=== PATIENT | female | born 1980 | race Caucasian/White ===

== ENCOUNTER 2017-01-08 07:57 | Emergency (ER) | payer MEDICAID ==
[2017-01-08 08:08] VITALS: TEMP 97.3; O2SAT 95
--- NOTE | 2017-01-08 09:02 | EDPHY ---
H & P Time Seen by Provider: 01/08/17 08:55 HPI/ROS: CHIEF COMPLAINT: Right ankle pain HISTORY OF PRESENT ILLNESS: This 36-year-old female, presents to the emergency department after an inversion ankle injury. The patient complains of pain to the lateral ankle and swelling. The patient has no other complaints, denies numbness or tingling to affected limb. Smoking Status: Current every day smoker Physical Exam: General appearance: alert no distress Right ankle: There is swelling and tenderness over the lateral ankle. TTP to ATFL and CFL Ankle joint is stable and there is no tenderness over the achilles tendon. The foot is non-tender without swelling. No TTP over 5th metatarsal. Neurologic exam: The patient has normal sensation and motor function distal to the injury. Vascular exam: Normal pulses and capillary refill in the foot Constitutional: Initial Vital Signs Temperature (C) 36.3 C 01/08/17 08:05 Heart Rate 84 01/08/17 08:05 Respiratory Rate 18 01/08/17 08:05 Blood Pressure 158/118 H 01/08/17 08:05 O2 Sat (%) 95 01/08/17 08:05 O2 Delivery Mode Room Air Allergies/Adverse Reactions: oxycodone HCl [From Percocet] Allergy (Unknown, Verified 01/08/17 08:03) Home Medications: Medication Instructions Recorded Ambien 01/08/17 DIAZEPAM 01/08/17 Diclofenac Sodium 01/08/17 LaMICtal 01/08/17 Sertraline HCl 01/08/17 Wellbutrin 100mg (*) 01/08/17 MDM/Departure - MDM Imaging Results: Imaging Impressions Ankle X-Ray 01/08/17 08:27 Impression: Fibular talar ligament avulsion.. Imaging: I viewed and interpreted images myself - Depart Disposition: Home, Routine, Self-Care Clinical Impression: Moderate right ankle sprain Qualifiers: Encounter type: initial encounter Qualified Code(s): S93.401A - Sprain of unspecified ligament of right ankle, initial encounter Condition: Good Instructions: Ankle Sprain (ED) Additional Instructions: Rest, ice, elevate, take your diclofenac as prescribed for pain and swelling. You can also add Tylenol to this. Return to the emergency department for any numbness, tingling, discoloration of you limb or other concerns. Use crutches, do not put weight on your right foot until you follow up with your orthopedist. Call today to schedule an appointment with your orthopedist at first available. Referrals: Flaquita Rodriguez, KARINE [Primary Care Provider] - As per Instructions
[2017-01-08 10:30] VITALS: BP 135/96; PULSE 85; RESP 16
== END 2017-01-08 10:30 | disposition home or self-care (01) ==
DX: S93.401A Sprain of unspecified ligament of right ankle, initial encounter (principal); F17.200 Nicotine dependence, unspecified, uncomplicated; X50.9XXA Other and unspecified overexertion or strenuous movements or postures, initial encounter
CPT/HCPCS: L4386

== ENCOUNTER 2017-02-06 19:27 | Emergency (ER) | payer MEDICAID ==
[2017-02-06 19:33] VITALS: PULSE 88; RESP 18; TEMP 98.2
--- NOTE | 2017-02-06 22:04 | EDPHY ---
H & P Smoking Status: Light smoker Time Seen by Provider: 02/06/17 21:06 HPI/ROS: CHIEF COMPLAINT: Right foot pain HISTORY OF PRESENT ILLNESS: 36-year-old female presents to the emergency department with right foot pain. The patient states that she rolled her right ankle few weeks ago and is now having more pain in her right foot. She has seen a furniture detailer. She had negative x-rays of her right ankle. She complains of isolated pain to the right foot especially to the medial aspect. She feels the ankle pain has improved. She has been wearing a boot as prescribed by the furniture detailer. She is able to bear some weight however she has been using crutches. Denies any other trauma or injury. She did not hit her head or lose consciousness. ROS: Denies numbness or tingling in her toes, pain in her the right calf or knee. (TamaraDarleen coker) Past Medical/Surgical History: TMJ, oral surgery, bipolar (TamaraDarleen coker) Social History: and lives in [place] (Tamarajohn paulDarleen M) Physical Exam: On examination the patient has swelling noted to the right ankle. She has reproducible pain with palpation just distal to the lateral malleolus as well as over the medial aspect of her right foot over the navicular bone. No palpable crepitus or other bony abnormality. Full range of motion of her foot or ankle. No obvious ligament instability. Her calf is nontender. Achilles tendon is intact. No ecchymosis. Normal sensation to light touch with normal 2 point discrimination. (Tamarajohn paulMaricruzDarleen M) Constitutional: Initial Vital Signs Temperature (C) 36.8 C 02/06/17 19:28 Heart Rate 88 02/06/17 19:28 Respiratory Rate 18 02/06/17 19:28 Blood Pressure 129/82 H 02/06/17 19:28 O2 Sat (%) 94 02/06/17 19:28 O2 Delivery Mode Room Air Allergies/Adverse Reactions: No Known Allergies Allergy (Unverified 02/06/17 19:34) Home Medications: Medication Instructions Recorded Ambien 01/08/17 DIAZEPAM 01/08/17 Diclofenac Sodium 01/08/17 LaMICtal 01/08/17 Sertraline HCl 01/08/17 Wellbutrin 100mg (*) 01/08/17 MDM/Departure - [facility] Imaging: I viewed and interpreted images myself - [facility] ED Course/Re-evaluation: 36-year-old female with right foot pain. X-rays reveal no fractures. She was placed in her same boot that she brought in. She was encouraged to have close follow-up with furniture detailer. (Darleen Campos) The patient was evaluated and managed by the Physician Personal Trainer/ Nurse Practitioner. My co-signature indicates that I have reviewed this chart and I agree with the findings and plan of care as documented. I am the secondary supervising physician. (Marquita Dill) - Depart Disposition: Home, Routine, Self-Care Clinical Impression: Right foot sprain Qualifiers: Encounter type: initial encounter Qualified Code(s): S93.601A - Unspecified sprain of right foot, initial encounter Condition: Good Instructions: Foot Sprain (ED) Additional Instructions: Weight bear and activity as tolerated. Ibuprofen 600mg every 8 hours for pain as directed. Referrals: Edmar Mayes MD [Doctor of Podiatric Medicine] - As per Instructions
[2017-02-06 22:24] VITALS: BP 124/80; O2SAT 97
== END 2017-02-06 22:24 | disposition home or self-care (01) ==
DX: S93.601A Unspecified sprain of right foot, initial encounter (principal); F17.200 Nicotine dependence, unspecified, uncomplicated; X50.9XXA Other and unspecified overexertion or strenuous movements or postures, initial encounter

== ENCOUNTER 2017-12-18 05:27 | Inpatient (IN) | payer MEDICAID ==
--- NOTE | 2017-12-11 15:23 | GHP ---
[f rep st] HISTORY AND PHYSICAL DATE OF ADMISSION: 12/18/2017 ADMISSION DIAGNOSES: 1. Dysfunctional uterine bleeding. 2. Dysmenorrhea. 3. Obesity. HISTORY OF PRESENT ILLNESS: Patient is a 37-year-old 4, para 4-0-0-4 who presented to my office for an annual exam in September 2017 with complaints of heavy, irregular, painful bleeding that has been worsening over the last 6 months to a year. The patient had a Nexplanon placed 6 months ago and she has been bleeding irregularly since. She has no bleeding for weeks and then it becomes heavy with clots and very painful for several weeks. She wears pads and changes them every 30 minutes when they are heavy. She uses a heating pad and takes ibuprofen with minimal relief. Patient does have a history of migraine with aura, and is not a candidate for OCPs. Patient has anxiety and depression that is followed by Dr. Friedman, and just started on Lyrica and stable. Patient desires definitive treatment at this time. She states cycles are too heavy, painful, and unpredictable. She also desires Nexplanon to be removed. PAST OBSTETRICAL HISTORY: Patient had a full-term uncomplicated vaginal deliveries in 2000, 2001, 2008 and 2015. PAST GYNECOLOGICAL HISTORY: Age of menarche is 9. Cycles are irregular and she usually bleeds for 7 days. Flow is heavy, and moderate cramping noted. Patient denies history of abnormal Pap smears. Patient does have a history of pelvic inflammatory disease at 15 years of age with positive chlamydia that was treated. Denies exposure to any other STDs. CURRENT MEDICATIONS: Include Lyrica, glipizide, Tradjenta, sertraline, Lamictal , Valium as needed, Ambien as needed, and Wellbutrin. ALLERGIES: No known drug allergies. PAST MEDICAL HISTORY: Remarkable for type 2 diabetes, depression, anxiety, mental illness, migraines with aura. PAST SURGICAL HISTORY: Ankle surgery in 2018. FAMILY HISTORY: Maternal grandmother with osteoporosis. Father, mother, maternal grandfather with diabetes. Maternal aunt x2 with ovarian cancer, unknown age at diagnosis. SOCIAL HISTORY: Patient is from her at this time, she is living with him and her 4 children for now. Patient admits to tobacco use, 3 cigarettes a day for 10 years. She is trying to quit and has a nicotine patch that was given to her by her primary care provider. Denies any alcohol or illicit drug use. She is a [id number] housewife. LABORATORY: Labs at this time are pending. IMAGING: Uterus measures 7 x 5 x 5 cm with no definitive masses. Endometrial stripe is thin at 0.39 cm. Right ovary normal. Left ovary is also normal. No free fluid seen. REVIEW OF SYSTEMS: 10-point review of systems is negative. Pertinent positives noted in HPI. PHYSICAL EXAMINATION: VITAL SIGNS: On admission, stable. GENERAL: The patient is an obese, well-nourished, well-developed female. Alert and oriented x3 in no apparent distress. SKIN: Warm, dry without rash. NEURO: Grossly intact. CARDIOVASCULAR: Regular rate and rhythm. LUNGS: Clear to auscultation bilaterally. ABDOMEN: Obese, soft, nontender, nondistended. PELVIC: Uterus is normal size, nontender, mobile. No adnexal masses noted. Body habitus limits accuracy of exam. EXTREMITIES: Normal to inspection without calf tenderness or edema. ASSESSMENT/PLAN: The patient is a 37-year-old 4, para 4-0-0-4 with dysfunctional uterine bleeding, dysmenorrhea, and obesity. 1. We discussed the procedure, total laparoscopic hysterectomy/bilateral salpingectomy, its limitations, possible large incision, n.p.o. status, postop recovery. 2. Discussed risks, benefits, alternatives with the patient, including, but not limited to bleeding, infection, and damage to surrounding organs. 3. Surgical consents were signed. 4. Patient understands all risks of the surgery and wants to proceed at this time. 5. Will remove Nexplanon in the operating room since we did not have time during the preop visit. 6. Antibiotics radio electronics technician to operating room. 7. SCDs for DVT prophylaxis. /[id number]/MODL MTDD
[2017-12-18] MEDS ORDERED: PHENAZOPYRIDINE HCL 100 MG TAB PO ONE (05:44)
[2017-12-18] MEDS ORDERED: LR 1,000 ML IV SCH ×2 (05:44→12:00)
[2017-12-18] MEDS ORDERED: ceFAZolin 2 GM/DEXTROSE 100 ML IV ONE (05:44)
[2017-12-18] MEDS ORDERED: ONDANSETRON 4 MG/2 ML VIAL IVP ONE (05:44)
[2017-12-18] MEDS ORDERED: LR 1,000 ML IV ONE (05:45)
[2017-12-18] MEDS ORDERED: LIDOCAINE 1% 2 ML INJ ID PRN (05:45)
[2017-12-18] MEDS ORDERED: PHENAZOPYRIDINE HCL 200 MG TAB ONE (06:38)
[2017-12-18] MEDS ORDERED: BUPIVACAINE 0.5% 30 ML SDV ONE (06:54)
--- NOTE | 2017-12-18 07:08 | PDANEPAE ---
ANE Past Medical History - Cardiovascular History Hx Hypertension: No Hx Arrhythmias: No Hx Chest Pain: No Hx Coronary Artery / Peripheral Vascular Disease: No Hx CHF / Valvular Disease: No Hx Palpitations: No - Pulmonary History Hx COPD: No Hx Asthma/Reactive Airway Disease: No Hx Recent Upper Respiratory Infection: No Hx Oxygen in Use at Home: No Hx Sleep Apnea: No Sleep Apnea Screening Result - Last Documented: Negative - Neurologic History Hx Cerebrovascular Accident: No Hx Seizures: No Hx Dementia: No Neurologic History Comment: MIGRAINES OCCAS - SINUS INDUCED - Endocrine History Hx Diabetes: Yes Endocrine History Comment: DM II - Renal History Hx Renal Disorders: No - Liver History Hx Hepatic Disorders: No - Neurological & Psychiatric Hx Hx Neurological and Psychiatric Disorders: Yes Neurological / Psychiatric History Comment: ANXIETY/DEPRESSION - Cancer History Hx Cancer: No - Congenital Disorder History Hx Congenital Disorders: No - GI History Hx Gastrointestinal Disorders: No - Other Health History Other Health History: ECZEMA - Chronic Pain History Chronic Pain: Yes (ENDOMETRIOSIS) - Surgical History Prior Surgeries: FOOT L SURG 06/2017 ANE Review of Systems Review of Systems: - Exercise capacity METS (RN): 4 METS ANE Patient History - Allergies Allergies/Adverse Reactions: No Known Allergies Allergy (Verified 11/15/17 14:02) - Home Medications Home Medications: Diazepam [Valium 5 MG (*)] 5 mg PO DAILY PRN 01/08/17 [Last Taken Unknown] Sertraline HCl [Zoloft 100mg (*)] 200 mg PO DAILY 01/08/17 [Last Taken Unknown] Zolpidem Tartrate [Ambien 5MG (*)] 5 mg PO HS PRN 01/08/17 [Last Taken Unknown] buPROPion XL [Wellbutrin Xl] 300 mg PO DAILY 01/08/17 [Last Taken Unknown] lamoTRIgine [LamICTAL 100 MG (*)] 200 mg PO DAILY 01/08/17 [Last Taken Unknown] Exenatide [Byetta] 5 mcg SQ BIDAC 11/15/17 [Last Taken Unknown] Ibuprofen [Motrin (*)] 200 mg PO DAILY PRN 11/15/17 [Last Taken Unknown] Linagliptin [Tradjenta] 5 mg PO DAILY 11/15/17 [Last Taken Unknown] Multivitamins [Multivitamin (*)] 1 each PO DAILY 11/15/17 [Last Taken Unknown] Pregabalin [Lyrica 50mg (*)] 50 mg PO TID 11/15/17 [Last Taken Unknown] - NPO status NPO Since - Liquids (Date): 12/18/17 NPO Since - Liquids (Time): 23:45 NPO Since - Solids (Date): 12/18/17 NPO Since - Solids (Time): 23:00 - Smoking Hx Smoking Status: Light smoker - Family Anes Hx Family Hx Anesthesia Complications: NEG ANE Labs/Vital Signs - Vital Signs Blood Pressure: 120/78 Heart Rate: 83 Respiratory Rate: 16 O2 Sat (%): 94 Height: 168.28 cm Weight: 117.934 kg ANE Physical Exam - Airway Neck exam: increased neck circumference Mallampati Score: Class 2 - ASA Status ASA Status: III ANE Anesthesia Plan Anesthesia Plan: general endotracheal anesthesia
[2017-12-18] MEDS ORDERED: MIDAZOLAM 2 MG/2 ML VIAL ONE (07:11)
[2017-12-18] MEDS ORDERED: fentaNYL 100 MCG/2 ML INJ ONE ×3 (07:13→11:47)
[2017-12-18] MEDS ORDERED: PROPOFOL 200 MG/20 ML VIAL ONE (07:14)
[2017-12-18] MEDS ORDERED: ROCURONIUM 50 MG/5 ML VIAL ONE ×2 (07:17→09:33)
[2017-12-18] MEDS ORDERED: ONDANSETRON 4 MG/2 ML VIAL ONE (07:17)
[2017-12-18] MEDS ORDERED: METOCLOPRAMIDE 10 MG/2 ML VIAL ONE (07:18)
--- NOTE | 2017-12-18 07:18 | PDHPUP ---
History & Physical Update H&P update statement: This history and physical update is based on an assessment of the patient which was completed after admission or registration (within 24 hours), but prior to the surgery/procedure. H&P update: H&P reviewed & patient examined, no change in patient's condition since H&P completed
[2017-12-18] MEDS ORDERED: METOPROLOL TARTRATE 5 MG/5 ML INJ ONE (08:54)
--- NOTE | 2017-12-18 11:43 | POSTOPPROG ---
Post Op Note Date of Operation: 12/18/17 Surgeon: Marjan Salas Senior Manager Quality Assurance: Joann Hilton Anesthesiologist: Joseph Kwok Anesthesia: GET(General Endotracheal) Pre-op Diagnosis: DUB, dysmenorrhea and obesity Post-op Diagnosis: DUB, dysmenorrhea and obesity Indication: 37 y/o with h/o DUB and dysmenorrhea; Irreg, painful cycles with Nexplanon Procedure: TLH, BS with cystoscopy and removal of Nexplanon Findings: Lg uterus at 10 cm, w/ no def. masses; normal-appearing tubes, ovaries Inf/Abcess present in the surg proc area at time of surgery?: No Depth: Organ Space EBL: 50-100 (100 cc) Total fluids administered: 1300 cc LR UO: 200 cc pyridium-stained urine Complications: None Specimen(s): Uterus, cervix and b/l tubes
[2017-12-18] MEDS ORDERED: NALOXONE HCL 0.4 MG/ML INJ IVP PRN (11:45)
[2017-12-18] MEDS ORDERED: PROMETHAZINE HCL 25 MG/ML INJ IVP PRN (11:45)
[2017-12-18] MEDS ORDERED: MEPERIDINE 25 MG/0.5 ML AMP IVP PRN (11:45)
[2017-12-18] MEDS ORDERED: LR 500 ML IV PRN (11:45)
--- NOTE | 2017-12-18 11:46 | POSTANESTH ---
Post Anesthetic Evaluation Cardiovascular Status: Normal, Stable Respiratory Status: Normal, Stable Level of Consciousness/Mental Status: Can Participate in Eval Pain Control: Adequate, Prn Tx Ordered Nausea/Vomiting Control: Adequate, Prn Tx Ordered Complications Possibly Related to Anesthesia: None Noted
[2017-12-18] MEDS ORDERED: ONDANSETRON DISINTEGRATING 4 MG TAB PO PRN (11:47)
[2017-12-18] MEDS ORDERED: LACTULOSE 20 GM/30 ML UDCUP PO PRN (11:47)
[2017-12-18] MEDS ORDERED: POLYETHYLENE GLYCOL 3350 17 GM PKT PO PRN (11:47)
[2017-12-18] MEDS ORDERED: BISACODYL 10 MG SUPP PR PRN (11:47)
[2017-12-18] MEDS ORDERED: MAGNESIUM HYDROXIDE 30 ML UDCUP PO PRN (11:47)
[2017-12-18] MEDS ORDERED: HYDROmorphONE/DILAUDID 1 MG/ML INJ ONE (11:47)
[2017-12-18] MEDS: fentaNYL 100 MCG/2 ML INJ IVP PRN ×2 (11:49→12:44)
[2017-12-18] MEDS: HYDROmorphONE/DILAUDID 1 MG/ML INJ IVP PRN ×2 (11:50→12:44)
[2017-12-18] MEDS ORDERED: HYDROmorphONE/DILAUDID 1 MG/ML INJ IVP PRN (11:50)
[2017-12-18] MEDS ORDERED: DIAZEPAM 5 MG TAB PO PRN (11:51)
[2017-12-18] MEDS ORDERED: ZOLPIDEM TARTRATE 5 MG TAB PO PRN (11:51)
[2017-12-18] MEDS ORDERED: HYDROCODONE/APAP 5/325 TAB ONE (13:47)
[2017-12-18] MEDS: HYDROCODONE/APAP 5/325 TAB PO PRN ×3 (13:48→21:38)
[2017-12-18] MEDS: IBUPROFEN 600 MG TAB PO PRN ×2 (15:47→21:38)
[2017-12-18] MEDS: PREGABALIN 50 MG CAP PO SCH ×2 (17:28→21:37)
--- NOTE | 2017-12-18 18:09 | SOAPPROG ---
SOAP Progress Note Assessment/Plan: Assessment: s/p TLH, BS and cysto POD #0 - pt is stable Plan: Continue routine post-op care Encourage ambulation, deep breathing and IS Push po fluids, UO at 50 cc/hr Analgesics as ordered SCDs for DVT prophylaxis H/H in am 12/1912/18/17 18:10 Subjective: Pt seen and examined. Pt is doing okay, no complaints right now. Pain was 11/29 earlier and she just took [place] x 2. Pt is not OOB yet, jimy regular diet, pressley in place, no flatus. Denies any f/c/n/v/CP or SOB. No VB noted. Denies any calf tenderness. Objective: Vital Signs Temp Pulse Resp BP Pulse Ox 37.2 C 95 16 109/75 94 12/18/17 17:33 12/18/17 17:33 12/18/17 17:33 12/18/17 17:33 12/18/17 17:33 12/17/17 12/18/17 12/19/17 05:59 05:59 05:59 Intake Total 1910 Output Total 350 Balance 1560 Physical Exam - Physical Exam General Appearance: WD/WN, alert, no apparent distress Respiratory: lungs clear, normal breath sounds Cardiac/Chest: regular rate, rhythm Abdomen: normal bowel sounds, non-tender (some mild TTP-appropriate), soft, distended (mild), other (Laparoscopic incisions x 4 - C/D/I, well approximated with glue) Pelvic Exam: deferred Skin: normal color, warm/dry Extremities: non-tender, normal inspection (with SCDs in place) Neuro/Psych: alert, normal mood/affect, oriented x 3 ICD10 Worksheet Patient Problems: Problems Problem Status Onset Dysmenorrhea Acute DUB (dysfunctional uterine bleeding) Acute
[2017-12-18] MEDS: Exenatide [Byetta] 5 MCG SQ SCH ×2 (19:19→21:37)
[2017-12-18] MEDS: SENNOSIDES/DOCUSATE SODIUM TAB PO SCH (21:37)
[2017-12-18] MEDS: glipiZIDE 10 MG TAB PO SCH (21:38)
[2017-12-19] MEDS: HYDROCODONE/APAP 5/325 TAB PO PRN ×5 (01:31→20:05)
[2017-12-19] MEDS: IBUPROFEN 600 MG TAB PO PRN ×4 (03:35→22:39)
[2017-12-19] MEDS ORDERED: BYETTA SC ONE (07:30)
[2017-12-19] MEDS: glipiZIDE 10 MG TAB PO SCH ×2 (07:43→18:10)
[2017-12-19] MEDS ORDERED: buPROPion XL 150 MG TAB PO SCH (09:00)
[2017-12-19] MEDS ORDERED: SERTRALINE HCL 100 MG TAB PO SCH (09:00)
[2017-12-19] MEDS ORDERED: lamoTRIgine 100 MG TAB PO SCH (09:00)
[2017-12-19] MEDS: PREGABALIN 50 MG CAP PO SCH ×3 (09:38→22:39)
[2017-12-19] MEDS: SENNOSIDES/DOCUSATE SODIUM TAB PO SCH ×2 (09:43→20:06)
--- NOTE | 2017-12-19 15:06 | SOAPPROG ---
SOAP Progress Note Assessment/Plan: Assessment: s/p TLH, BS and cysto POD # 1 - pt is stable Plan: Continue routine post-op care Encourage ambulation and IS Pt may shower today Cont to monitor UO, encouraged to increase po fluids Cont to monitor O2 sats - down to 85% on RA earlier this morning Plan for d/c home in am 12/2012/19/17 15:07 Subjective: Pt seen and examined. Doing well with no complaints. Pain is overall well controlled on po meds. Pain now at 5/10, but is due for [place]. Pt is OOB, jimy regular diet, voiding without difficulty and passing flatus. Denies any f/c/n/v/ CP or SOB. Mild spotting noted on pad. No calf tenderness. Objective: Vital Signs Temp Pulse Resp BP Pulse Ox 37.4 C 76 16 96/58 L 96 12/19/17 13:54 12/19/17 13:54 12/19/17 07:56 12/19/17 13:54 12/19/17 13:54 Laboratory Results 12/19/17 05:30 12/18/17 12/19/17 12/20/17 05:59 05:59 05:59 Intake Total 4560 Output Total 1300 700 Balance 3260 -700 Physical Exam - Physical Exam General Appearance: WD/WN, alert, no apparent distress Respiratory: lungs clear, normal breath sounds Cardiac/Chest: regular rate, rhythm Abdomen: normal bowel sounds, non-tender (appropriate tenderness), soft, other ( Laparoscopic incisions x 3 - C/D/I with glue) Rectal: deferred Skin: normal color, warm/dry Extremities: non-tender, normal inspection Neuro/Psych: alert, normal mood/affect, oriented x 3 ICD10 Worksheet Patient Problems: Problems Problem Status Onset DUB (dysfunctional uterine bleeding) Acute Dysmenorrhea Acute
--- NOTE | 2017-12-19 16:50 | PDMN ---
Medical Necessity Medical necessity: Change to IP, as of 12/19/17, per Nurse Green Building Architect; los >2 s/p hysterectomy POD #1; requiring routine post-op care & further monitoring of O2 sats (85% on RA this morning, currently requiring 1.5 lpm O2) & urinary output; per progress note & order 12/19/17
[2017-12-19] MEDS: Exenatide [Byetta] 5 MCG SQ SCH (18:10)
[2017-12-20] MEDS: HYDROCODONE/APAP 5/325 TAB PO PRN ×4 (00:31→12:56)
[2017-12-20] MEDS: IBUPROFEN 600 MG TAB PO PRN ×2 (04:59→11:07)
[2017-12-20 07:32] VITALS: BP 91/60
[2017-12-20] MEDS: Exenatide [Byetta] 5 MCG SQ SCH (07:56)
[2017-12-20] MEDS: glipiZIDE 10 MG TAB PO SCH (07:57)
[2017-12-20] MEDS: SENNOSIDES/DOCUSATE SODIUM TAB PO SCH (09:10)
[2017-12-20] MEDS: PREGABALIN 50 MG CAP PO SCH (09:10)
--- NOTE | 2017-12-20 10:48 | SOAPPROG ---
SOAP Progress Note Assessment/Plan: Assessment: s/p TLH, BS and cysto POD # 2 - pt is stable Plan: Plan for d/c home Instructions reviewed with pt Rx given for Motrin and [place] Pelvic rest and lifting restrictions given Discussed f/u with PCP and t/c sleep study, ?sleep apnea RTO in 2 and 6 weeks for post-op check 12/20/17 10:48 Subjective: Pt seen and examined. Slept well last night, no complaints. Pain is well controlled. Pt is OOB, jimy reg diet, voiding and passing flatus. No BM yet. Denies any f/c/n/v/CP or SOB. Pulse ox earlier this am 85% on RA; pt now with oxygen on. Denies using CPAP at home. Mild spotting noted. No calf tenderness. Objective: Vital Signs Temp Pulse Resp BP Pulse Ox 36.3 C 83 16 91/60 L 85 L 12/20/17 07:31 12/20/17 07:31 12/20/17 07:31 12/20/17 07:31 12/20/17 10:01 Laboratory Results 12/19/17 05:30 12/19/17 12/20/17 12/21/17 05:59 05:59 05:59 Intake Total 4560 Output Total 1300 1650 Balance 3260 -1650 Physical Exam - Physical Exam General Appearance: WD/WN, alert, no apparent distress, obese Respiratory: lungs clear, normal breath sounds Cardiac/Chest: regular rate, rhythm Abdomen: normal bowel sounds, non-tender, soft, other (Laparoscopic incisions x 3 - C/D/I with glue, some ecchymosis near RLQ) Pelvic Exam: deferred Skin: normal color, warm/dry Extremities: non-tender, normal inspection Neuro/Psych: alert, normal mood/affect, oriented x 3 ICD10 Worksheet Patient Problems: Problems Problem Status Onset DUB (dysfunctional uterine bleeding) Acute Dysmenorrhea Acute
--- NOTE | 2017-12-20 12:11 | GOP ---
[f rep st] OPERATIVE REPORT DATE OF OPERATION: 12/18/2017 SURGEON: Marjan Salas DO USED CAR SALESPERSON: Joann Hilton MD. ANESTHESIA: General endotracheal. ANESTHESIOLOGIST: Joseph Kwok MD. PREOPERATIVE DIAGNOSIS: 1. Dysfunctional uterine bleeding. 2. Dysmenorrhea. 3. Obesity. POSTOPERATIVE DIAGNOSIS: 1. Dysfunctional uterine bleeding. 2. Dysmenorrhea. 3. Obesity. PROCEDURE PERFORMED: Total laparoscopic hysterectomy, bilateral salpingectomy, cystoscopy, and removal of Nexplanon. FINDINGS: An enlarged uterus that sounded to 10 cm with no definitive masses, fibroids seen. Grossly normal-appearing tubes and ovaries bilaterally. Upper abdomen grossly normal appearing. SPECIMENS: Uterus, cervix, and bilateral tubes. ESTIMATED BLOOD LOSS: 100 cc. INDICATIONS: The patient is a 37-year-old, G4, P4, with a history of dysfunctional uterine bleeding and dysmenorrhea. The patient, about 6 months ago, had a Nexplanon inserted and still notes irregular, painful cycles. She desires definitive treatment at this time, a hysterectomy with removal of Nexplanon. She desires to keep her ovaries. Discuss risks, benefits, alternatives of the procedure including but not limited to bleeding, infection, and damage to surrounding organs. The patient understands all risks of the procedure and wants to proceed at this time. The patient was properly consented. DESCRIPTION OF PROCEDURE: Patient was taken back to the operating room where general anesthesia was obtained without difficulty. Patient was placed in dorsal lithotomy position, and prepped and draped in the usual sterile manner. Dawson catheter was placed in her bladder. After WHO time-out was performed, bimanual exam revealed an enlarged, mobile uterus and no adnexal masses. Exam limited by patient's body habitus. An open-sided speculum was then placed in the patient's vagina. The anterior lip of the cervix was grasped with an Allis clamp. The cervix had to be dilated up to a #7 Hegar. The uterus was then sounded to 10 cm. A medium-sized metal cup for the EVARISTO manipulator and a size 8 tip were used. The EVARISTO was assembled and gently advanced in the cervix to provide a means to manipulate the uterus. All instruments then removed from the vagina. We then turned our attention to the patient's abdomen. The infraumbilical area was injected with 0.5% plain Marcaine, and a 5 mm infraumbilical skin incision was made with a knife. A Veress needle was inserted carefully while tenting the abdominal wall. Aspiration was negative, and pneumoperitoneum was obtained without difficulty. The Veress needle was then removed. A trocar attached to a 5 mm 0-degree laparoscope was then placed through this incision. The peritoneal cavity was entered under direct visualization without difficulty. After placing more local, a 10 mm skin incision was made in the right lower quadrant, and a 5 mm skin incision made in the left lower quadrant. Atraumatic trocars were then placed under direct visualization without difficulty. The patient was placed in Trendelenburg, and pelvic structures were visualized at this time. Pelvic findings noted above. At this time, the fimbria of the right tube was grasped, and using the LigaSure, the mesosalpinx was cauterized multiple times and transected. This was carried all the way down the cornual insertion of the tube. The tube was completely transected and removed through the 10 mm port and sent to Pathology. The round ligament on this side was then grasped, coagulated multiple times with the LigaSure, and then transected. Hemostasis noted. Dissection was carried to the anterior and posterior leaves of the broad ligament which were , and a bladder flap was created anteriorly. Uterine vessels were then identified, grasped, and cauterized multiple times with the LigaSure, and then transected. There was noted to be some oozing but no active bleeding. We then turned our attention to the left side where a similar procedure was done. Hemostasis was noted. We then proceeded to the colpotomy. This was done using the LigaSure hook. We started posteriorly and worked circumferentially around the cervix. There was some bleeding noted from the posterior cuff and this area was cauterized with LigaSure. The colpotomy was done and the specimen was removed intact through the vagina without difficulty. The specimen was sent to Pathology. A sponge-glove was then placed in the vagina in order to maintain pneumoperitoneum. We then went back up to visualize the vaginal cuff laparoscopically and there was noted to be bleeding from the cuff posteriorly. The area was visualized after suction-irrigation and cauterized multiple times with the LigaSure. Hemostasis was finally achieved. Then, using a running 0 Vicryl V-Loc suture, the vaginal cuff was closed right-to- left and hemostasis noted. The pelvis was then irrigated with copious amounts of normal saline. All pedicles did appear hemostatic. 3 grams of Tracy was placed on the vaginal cuff as well as the left and right pedicles for further hemostasis. We then proceeded with a cystoscopy. At this time, the Dawson catheter was removed, and a 70-degree cystoscope was gently placed up inside the urethra, passed into the bladder, which was distended using normal saline. The dome of the bladder was visualized as well as bilateral ureteral orifices with spillage of Pyridium-stained urine bilaterally. The scope was then removed and Dawson catheter was replaced, and the bladder was allowed to drain. We turned our attention to 10 mm skin incision. The trocar was removed and the fascia was closed with 0 Vicryl with some difficulty secondary to patient's body habitus. The other trocar sleeves were then removed under direct visualization. All gas was allowed to escape from the abdomen. All of the skin incisions were then closed with Dermabond. All instrument, sponge, and needle counts correct x2. Patient tolerated the procedure well. No complications. Patient was then taken out of dorsal lithotomy position, awakened, and taken to recovery room in stable condition. TOTAL FLUIDS: 1300 cc of LR. URINE OUTPUT: 200 cc of Pyridium stained urine at the end of the procedure. /[id number]/MODL MTDD
--- NOTE | 2017-12-26 13:05 | GDS ---
ADMITTING DIAGNOSES: 1. Dysfunctional uterine bleeding. 2. Dysmenorrhea. 3. Obesity. POSTOPERATIVE DIAGNOSES: 1. Dysfunctional uterine bleeding. 2. Dysmenorrhea. 3. Obesity. PROCEDURES PERFORMED: Total laparoscopic hysterectomy, bilateral salpingectomy , cystoscopy, and removal of Nexplanon. HPI: Patient is a 37-year-old G4, P4 with a long history of dysfunctional uterine bleeding, and dysmenorrhea. The patient, about 6 months ago, had a Nexplanon inserted to help with her irregular painful cycles, and she still is not having any relief with these cycles. She desires definitive treatment at this time, hysterectomy with removal of Nexplanon. She desires to keep her ovaries. The patient was properly consented. HOSPITAL COURSE: Overall, the patient did well postoperatively. Pain was not well controlled on postoperative day 1, but was better controlled on postoperative day 2. The patient was out of bed, ambulating, tolerating regular diet, voiding without difficulty, and passing flatus. She had not had a bowel movement. She was oxygenating down to 88% on room air and required oxygen the first day. This was likely secondary to not moving around much. The patient does not use oxygen at home. The patient was stable for discharge on postoperative day 2. DISPOSITION: Patient is being discharged home. DISCHARGE INSTRUCTIONS: Pelvic rest, nothing in vagina for 6 weeks including sex, tampons, or douching. No swimming, hot tubs, or tub baths. Recommend not soaking incisions and to keep them as clean and dry as possible. They were closed with glue which will fall off in 1-2 weeks. Recommend she stay well hydrated and try to manage her diabetes better. No heavy lifting greater than 20 pounds. The patient was instructed to call if any excessive vaginal bleeding , abdominal pain that is not being controlled with medication, or any fevers with temperature greater than 100.4. Also recommend patient follow-up with PCP for a sleep study, ? sleep apnea. The patient is to call the office to make a 2- week postop appointment with Dr. Salas. DISCHARGE MEDICATIONS: 1. Valium 5 mg p.o. daily 2. Ambien 5 mg p.o. at bedtime p.r.n. 3. Lyrica 50 mg p.o. three times daily 4. Multivitamin p.o. daily 5. Tradjenta 5 mg p.o. daily 6. Byetta 5 mcg subcu AC 7. Glucotrol 10 mg p.o. twice daily AC 8. Motrin 600 mg p.o. q.6 hours p.r.n. 9. [place] 5/325 one to two tabs p.o. q.4 hours p.r.n. FOLLOWUP: The patient is to return in [address] Salas at [facility] for a postoperative check and incision check. /[id number]/MODL MTDD
== END 2017-12-20 13:25 | disposition home or self-care (01) | DRG 513 ==
LOC: F3E 05:27 → FOB 14:30 → OBSVTOIN 12-19 16:33
PROVIDERS: ADMIT Obstetrics & Gynecology; ATTEND Obstetrics & Gynecology
PROC: 0TJB8ZZ Inspection of Bladder, Via Natural or Artificial Opening Endoscopic (ICD-10-PCS; principal; 2017-12-19)
PROC: 0UT74ZZ Resection of Bilateral Fallopian Tubes, Percutaneous Endoscopic Approach (ICD-10-PCS; principal; 2017-12-19)
PROC: 0UT94ZZ Resection of Uterus, Percutaneous Endoscopic Approach (ICD-10-PCS; principal; 2017-12-19)
DX: N93.8 Other specified abnormal uterine and vaginal bleeding (principal); D25.9 Leiomyoma of uterus, unspecified; N94.6 Dysmenorrhea, unspecified; E66.9 Obesity, unspecified; Z68.41 Body mass index [BMI] 40.0-44.9, adult
CPT/HCPCS: G0378; J0690; J1170; J2250; J2405; J2704; J2765; J3010

== ENCOUNTER 2017-12-30 14:36 | Emergency (ER) | payer MEDICAID ==
[2017-12-30] MEDS ORDERED: ONDANSETRON 4 MG/2 ML VIAL IVP ONE (15:17)
[2017-12-30] MEDS ORDERED: NS 1,000 ML IV ONE (15:17)
--- NOTE | 2017-12-30 15:24 | EDPHY ---
H & P Time Seen by Provider: 12/30/17 15:07 HPI/ROS: HPI Recent hysterectomy. Abdominal pressure. 37-year-old female by private vehicle with friend. This patient had a hysterectomy performed by [facility] about a week and a half ago secondary to endometriosis. She reports that for the last couple days she has had some burning with urination a sensation of pelvic pressure. She reports that yesterday her infant who is 2 years old was startled by a cat and jumped on her lower stomach pelvic area. Since then she has had a sensation of pressure and discomfort. She has had associated nausea but no vomiting. Last meal was a couple of hours ago and included some cheese. No bloody or melenic stool. No diarrhea. She was told to come here by [facility] for evaluation. ROS: Constitutional: No fever, no chills. As above. Eyes: No discharge. No changes in vision. ENT: No sore throat. No nasal congestion or rhinorrhea. Respiratory: No cough. No shortness of breath. Cardiac: No chest pain, no palpitations. Gastrointestinal: As above, no vomiting, no diarrhea. Genitourinary: No hematuria. As above. Musculoskeletal: No back pain. No neck pain. No myalgias or arthralgias. Skin: No rashes. Neurological: No headache. No focal weakness or altered sensation. Past medical history: As above. Oral surgery, bronchitis, bipolar. Social history: Nonsmoker. Here with friend. No alcohol. Physical Exam: General Appearance: Alert, no distress. This patient is responding to questions appropriately and in full sentences. This patient appears well- hydrated and well-nourished. Eyes: Pupils equal and round no pallor or injection. No lid edema, erythema or injection. Respiratory: There are no retractions, lungs are clear to auscultation with good air movement bilaterally. Cardiovascular: Regular rate and rhythm. No murmur. Gastrointestinal: Obese habitus. Abdomen is soft with vague and mild tenderness involving the suprapubic area and lower abdomen, no masses, bowel sounds normal. No focal tenderness at McBurney's point. No Eric sign. Her laparoscopic surgical incisions are clean dry and intact and without evidence of soft tissue infection or significant inflammation. Neurological: Motor sensory function is grossly intact. Cranial nerves are normal. Gait is normal. Skin: Warm and dry, no rashes. Musculoskeletal: Neck is supple and nontender. Extremities are symmetrical. All joints range without pain or impingement. Psychiatric: No agitation. No depression. Database: EKG: Imaging: CT abdomen and pelvis with IV contrast: Status post hysterectomy. Significant for a small fluid collection measuring 6.4 cm x 2.3 cm by 4 cm a contains small gas bubbles. It is just anterior to the vaginal cuff area. Possible residual hematoma from surgery verses early abscess. Results were discussed with staff radiologist Dr. Chandra Rojas. Procedures: Emergency department course: Triage vital signs reviewed and are normal. IV established. She was started on IV normal saline with 1 L to be given over the next hour. She declines pain medication on initial evaluation. She will be given 4 mg of IV Zofran for nausea. She consents to CT imaging. Urinalysis to be obtained. Pain medication will be given as needed. 5:00 p.m., patient re-evaluated. Discussed results of lab work and CT with the patient. Her OBGYN has been paged for consultation on further management disposition. 5:[address] Nichole her OBGYN and surgeon. He will evaluate her CT and call us back with recommendations on disposition. 5:55 p.m., spoke with Dr. Nichole who has reviewed the patient's CT scan. The patient has a follow-up appointment scheduled for tomorrow morning. Dr. Nichole feels the patient is safe for discharge. I will place the patient on Keflex for treatment of a probable urinary tract infection. She was given her 1st dose of [address] Nichole feels that abscess is unlikely but will see the patient on close follow-up tomorrow morning in the office. The patient is in agreement with this plan and feels comfortable going home. Return to emergency department precautions were thoroughly reviewed with her. All of her questions were answered. She was discharged in good condition. Differential Diagnosis: The differential diagnosis on this patient includes but is not limited to postsurgical discomfort, urinary tract infection. Postoperative hemorrhage, pelvic abscess/postoperative infection, ovarian torsion unlikely. This represents a partial list of diagnoses considered. These considerations are based on history, physical exam, past history, reassessment and diagnostic testing. Smoking Status: Light smoker Constitutional: Initial Vital Signs Temperature (C) 36.6 C 12/30/17 14:41 Heart Rate 90 12/30/17 14:41 Respiratory Rate 18 12/30/17 14:41 Blood Pressure 124/108 H 12/30/17 14:41 O2 Sat (%) 95 12/30/17 14:41 O2 Delivery Mode Room Air Allergies/Adverse Reactions: No Known Allergies Allergy (Verified 12/30/17 14:40) Home Medications: Medication Instructions Recorded Diazepam [Valium 5 MG (*)] 5 mg PO DAILY PRN 01/08/17 Zolpidem Tartrate [Ambien 5MG (*)] 5 mg PO HS PRN 01/08/17 Exenatide [Byetta] 5 mcg SQ BIDAC 11/15/17 Linagliptin [Tradjenta] 5 mg PO DAILY 11/15/17 Multivitamins [Multivitamin (*)] 1 each PO DAILY 11/15/17 Pregabalin [Lyrica 50mg (*)] 50 mg PO TID 11/15/17 glipiZIDE [Glucotrol] 10 mg PO BIDAC 12/18/17 Hydrocodone/APAP 5/325 [[place] 1 - 2 tab PO Q4HRS PRN #30 tab 12/19/17 5/325 (*)] Ibuprofen [Motrin (*)] 600 mg PO Q6HRS PRN #30 tab 12/19/17 Cephalexin [Keflex (*)] 500 mg PO Q6 7 Days cap 12/30/17 Medical Decision Making - Data Points Laboratory Results: Laboratory Results 12/30/17 15:10 12/30/17 15:10 Microbiology Results: MICROBIOLOGY 12/30/17 15:47 Unspecified Urine Culture - Final Gram Neg Chavo Lactose Rigger Helper Gram Neg Chavo Lactose Rigger Helper#2 Two [place] Types Medications Given: Discontinued Medications Cephalexin HCl (Keflex) 500 mg PO EDNOW ONE PRN Reason: Protocol Stop: 12/30/17 16:32 Last Admin: 12/30/17 17:34 Dose: 500 mg Sodium Chloride (Ns) 1,000 mls @ 0 mls/hr IV EDNOW ONE; Wide Open PRN Reason: Protocol Stop: 12/30/17 15:18 Last Admin: 12/30/17 15:58 Dose: 1,000 mls Ondansetron HCl (Zofran) 4 mg IVP EDNOW ONE Stop: 12/30/17 15:18 Last Admin: 12/30/17 15:59 Dose: 4 mg Promethazine HCl (Phenergan) 6.25 mg IVP ONCE ONE Stop: 12/30/17 16:27 Last Admin: 12/30/17 16:27 Dose: 6.25 mg Point of Care Test Results: Chemistry 12/30/17 15:32 POC Sodium 140 mEq/L mEq/L (135-145) POC Potassium 3.7 mEq/L mEq/L (3.3-5.0) POC Chloride 102 mEq/L mEq/L (97-110) POC BUN 16 mg/dL mg/dL (7-23) POC Creatinine 0.8 mg/dL mg/dL (0.6-1.0) POC Glucose 107 mg/dL H mg/dL (70-100) ISTAT H&H 12/30/17 15:32 POC Hgb 14.6 gm/dL gm/dL (12.6-16.3) POC Hct 43 % % (38-47) Departure - Departure Disposition: Home, Routine, Self-Care Clinical Impression: Urinary tract infection, Status post hysterectomy Condition: Good Instructions: Urinary Tract Infection in Women (ED) Additional Instructions: Read and follow provided instructions. Follow-up with your OBGYN as scheduled in the office tomorrow without fail. Take antibiotic as prescribed through entire course of treatment. Ibuprofen dosin mg every 6 hours with meals for the next 3 days only. Take only as needed for pain. Return to the emergency department for worsening pain, fever, vomiting or other serious concerns. Referrals: Marjna Salas DO [Doctor of Osteopathy] - As per Instructions Prescriptions: Cephalexin [Keflex (*)] 500 mg PO Q6 7 Days cap
[2017-12-30 15:25] LABS: PLATELET COUNT 311 10^3/uL (150-400)
[2017-12-30] MEDS ORDERED: IOPAMIDOL (ISOVUE-300) 100 ML BTL ONE ×2 (15:43→16:06)
[2017-12-30] MEDS ORDERED: PROMETHAZINE HCL 25 MG/ML INJ ONE (16:24)
[2017-12-30] MEDS ORDERED: PROMETHAZINE HCL 25 MG/ML INJ IVP ONE (16:26)
[2017-12-30] MEDS ORDERED: CEPHALEXIN 500 MG CAP PO ONE (16:31)
[2017-12-30 18:20] VITALS: BP 112/76
== END 2017-12-30 18:20 | disposition home or self-care (01) ==
DX: N39.0 Urinary tract infection, site not specified (principal); E86.9 Volume depletion, unspecified; E66.9 Obesity, unspecified; Z68.41 Body mass index [BMI] 40.0-44.9, adult; Z90.710 Acquired absence of both cervix and uterus
CPT/HCPCS: 82435-PO; 82565-PO; 82947-PO; 84132-PO; 84295-PO; 84520-PO; 85014-PO; 96374; J2405; J2550; Q9967

== ENCOUNTER 2018-09-10 21:31 | Emergency (ER) | payer OTHER, MEDICAID ==
[2018-09-10 21:39] VITALS: BP 126/76
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
[2018-09-10] MEDS ORDERED: CYCLOBENZAPRINE 10 MG TAB PO ONE (22:09)
== END 2018-09-10 22:22 | disposition home or self-care (01) ==
DX: S16.1XXA Strain of muscle, fascia and tendon at neck level, initial encounter (principal); S29.019A Strain of muscle and tendon of unspecified wall of thorax, initial encounter; V49.59XA Passenger injured in collision with other motor vehicles in traffic accident, initial encounter; Y92.410 Unspecified street and highway as the place of occurrence of the external cause